=== PATIENT | male | born 2005 | race Hispanic/Latino ===

== ENCOUNTER 2024-03-15 13:37 | Emergency (ER) | payer SELFPAY ==
[2024-03-15 13:39] VITALS: BP 138/89
--- NOTE | 2024-03-15 15:32 | ED.GENMED ---
History of Present Illness
General
Chief Complaint: Fever
Source: patient and applications engineering manager
Exam Limitations: none
Time Seen by Provider: 03/15/24 15:12
History of Present Illness
History of Present Illness:
18yoM with no significant past medical history presenting with his father for evaluation of URI symptoms x 1 week. Patient is [place]-speaking and history is obtained with the assistance of a phone applications engineering manager. Patient reports subjective fevers
for the past week. He has been feeling warm but has not been checking his temperatures. He also reports body aches and headaches. Father has been giving him Tylenol intermittently. Patient is otherwise asymptomatic and denies any neck pain, neck
stiffness, rashes, vomiting, diarrhea, abdominal pain, dysuria, joint swelling. No sick contacts, recent travel, or tick bites.
Phy Exam
General Physical Exam
General Presentation: well appearing and no apparent distress
General age: appears stated age
General Skin: warm and dry
General Habitus: normal
General Mental: alert
ENT Exam
ENT Exam: TM's normal, pharynx normal, neck supple and normocephalic
Additional ENT: Full ROM of cervical spine without pain
Cardiovascular Exam
Cardiovascular Exam: regular rate/rhythm and no murmur
Pulmonary Exam
Pulmonary Exam: lungs clear, no respiratory distress, no rales, no crackles and no rhonchi
Gastrointestinal Exam
Gastrointestinal Exam: non tender, soft and non distended
Pike Coma Scale
Eye Opening: Spontaneous
Verbal Response: Oriented
Motor Response: Obeys Commands
GCS Total Score: 15
Skin Exam
Skin Exam: normal color and warm/dry
Psychiatric Exam
Psychiatric Exam: normal mood/affect
Course
Orders/Labs/Results
Orders:
Orders
03/15/24 15:31
0.9% Sodium Chloride 1000 ml [Nss] 1,000 ml IV BOLUS
Ketorolac [Toradol] 15 mg IV NOW STA
03/15/24 15:52
COVID-19 Antigen Urgent
Source: Nasal Swab
Complete Blood Count/With Diff Urgent
Comprehensive Metabolic Panel Urgent
Influenza A+B Rapid Molecular Urgent
KODI Source: Nasal Swab
Specimen Description:
Abnormal Lab Results
03/15/24
15:52
MPV 11.2 H fL
(7.4-10.4)
Absolute Monos (auto) 1.3 H 10^3/uL
(0.1-0.6)
Monocytes % 14.8 H %
(1.7-9.3)
Eosinophils % 8.6 H %
(0-6)
BUN 22 H mg/dl
(9-20)
Glucose 101 H mg/dl
(70-99)
03/15/24 15:52
03/15/24 15:52
Vital Signs
Initial and Last Documented VS:
Initial Vital Signs
Temp Pulse Resp BP Pulse Ox
97.8 F 78 18 138/89 98
03/15/24 13:39 03/15/24 13:39 03/15/24 13:39 03/15/24 13:39 03/15/24 13:39
Last Documented Vital Signs
Temp Pulse Resp BP Pulse Ox
98.2 F 78 18 110/58 100
03/15/24 15:45 03/15/24 17:18 03/15/24 17:18 03/15/24 17:18 03/15/24 17:18
MDM/Problems Addressed
Differential Diagnosis Includes:
18yoM here with flu-like symptoms x 1 week. C/o headache, subjective fevers, body aches. He is afebrile and hemodynamically stable. He is well appearing in no distress. Exam reassuring. No focal signs of infection on exam. No meningismus noted.
Differential diagnosis includes but is not limited to: COVID, influenza, other viral illness, doubt meningitis
Initial ED plan: Check CBC, CMP, and COVID/flu test. IV Toradol and fluid bolus for symptoms.
*Critical Care Note
Total Time (30-74mins, 75-104mins- exclusive of procedures): Not Applicable
Update Note
Update Note:
COVID/flu swab negative. Labs unremarkable including normal white count, renal function, LFTs. Patient feeling improved on reassessment. Vitals remain stable. He is stable for discharge. Suspect viral illness. Supportive care discussed. Advised f/u
with PCP. ED return precautions discussed. Patient and father expressed understanding and are agreeable to plan. Patient discharged in stable condition.
ED Attending Note
-
Portions of this chart may have been created with voice recognition software.� Occasional wrong word or��sound alike� substitutions may have occurred due to the inherent limitations of voice recognition software.
Discharge Plan
Departure
Patient Disposition: Home (Routine Discharge)
Date of Disposition: 03/15/24
Time of Disposition: 17:06
Patient with high blood pressure during this ER visit?: No
Discharge Problem:
Flu-like symptoms
Instructions: Viral Syndrome (DC)
Referrals:
[facility] [Outside]
NONE,* [Family Provider] -
Activity Restrictions/Additional Instructions:
Drink plenty of fluids and rest. Take Tylenol and ibuprofen as needed for headaches/fevers.
Please follow-up with a family doctor. Return to the ER with any new or worsening symptoms.
Interventions
Interventions:
*Risk Screen - Suicide Last Done: 03/15/24 15:58
*General Assessment Last Done: 03/15/24 15:58
*Neglect/Abuse Screening Last Done: 03/15/24 15:58
ED- Fall Risk Assessment Last Done: 03/15/24 15:45
*ED COVID-19 Vaccine History Last Done: 03/15/24 15:58
*Nursing Disposition Last Done: 03/15/24 17:18
ED- Neurological Assessment Last Done: 03/15/24 15:45
ED-Skin Assessment Last Done: 03/15/24 15:45
Discharge Date and Time
Discharge Date/Time: 03/15/24 17:19
Print Language: POLISH
[2024-03-15 15:45] VITALS: BP 124/73
[2024-03-15] MEDS: NSS 1000 IV (15:52)
[2024-03-15] MEDS: TORADOL 15 MG IV (15:52)
[2024-03-15 16:04] LABS: % Basophils 0.7 % (0-2); % Eosinophils 8.6 % (0-6); % Immature Granulocytes 0.4 % (0-0.5); % Monocytes 14.8 % (1.7-9.3); % Neutrophils 49.5 % (42.2-75.2); Absolute Basophils 0.1 10^3/uL (0-0.2); Absolute Eosinophils 0.7 10^3/uL (0-0.7); Absolute Lymphocytes 2.2 10^3/uL (1.2-3.4); Absolute Monocytes 1.3 10^3/uL (0.1-0.6); Absolute Neutrophils 4.2 10^3/uL (1.4-6.5); Hematocrit 42.2 % (39.0-52.0); Hemoglobin 14.9 g/dL (13.0-18.0); Mean Corp Hgb Conc. 35.3 g/dL (33.0-37.0); Mean Corpuscular Hgb 28.7 pg (27.0-31.0); Mean Corpuscular Volume 81.3 fL (80.0-94.0); Mean Platelet Volume 11.2 fL (7.4-10.4); Nucleated Red Blood Cells % 0 % (-); Platelet Count 290 10^3/uL (130-400); Red Blood Cell Count 5.19 10^6/uL (4.70-6.10); White Blood Cell Count 8.5 10^3/uL (4.8-10.8)
[2024-03-15 16:22] LABS: ALT (SGPT) 20 U/L (0-50); AST (SGOT) 20 U/L (17-59); Albumin 4.7 g/dl (3.5-5.0); Alkaline Phosphatase 107 U/L (38-126); Blood Urea Nitrogen 22 mg/dl (9-20); Calcium 9.7 mg/dl (8.4-10.2); Carbon Dioxide 28 mmol/L (22-30); Chloride 101 mmol/L (98-107); Glucose 101 mg/dl (70-99); Potassium 3.9 mmol/L (3.5-5.1); Sodium 140 mmol/L (135-145); Total Bilirubin 0.4 mg/dl (0.2-1.3); Total Protein 7.6 g/dl (6.3-8.2); eGFR > 60.00
[2024-03-15 16:28] LABS: COVID-19 Antigen Negative (Negative)
[2024-03-15 17:18] VITALS: BP 110/58
== END 2024-03-15 17:19 | disposition home or self-care (01) ==
LOC: EMR 13:37
PROVIDERS: Physician Assistant; EMERGENCY PHYSICIAN Student in an Organized Health Care Education/Training Program
DX: R50.9 Fever, unspecified (principal); R51.9 Headache, unspecified; Z11.52 Encounter for screening for COVID-19
CPT/HCPCS: 99284; 96374; 96361; 80053; 85025; 87502; 87811